=== PATIENT | male | born 1995 | race Caucasian/White ===

== ENCOUNTER 2017-05-15 07:48 | Emergency (ER) | payer OTHER ==
[~2017-05-15] VITALS: Ht 185.4 cm; Wt 83.6 kg
[2017-05-15 07:55] VITALS: BP 118/53
--- NOTE | 2017-05-15 09:31 | REP ---
RIGHT ANKLE SERIES: Four views of the right ankle are performed. There is no evidence of acute fracture or dislocation. There is moderate lateral soft tissue swelling. The ankle mortise is anatomic. IMPRESSION: No acute fracture or dislocation. Signed by Clayton Gooden MD 05/15/2017 10:05 A
--- NOTE | 2017-05-15 09:31 | REP ---
RIGHT FOOT SERIES, FOUR VIEWS: There is no evidence of an acute fracture, dislocation or intrinsic bone disease. IMPRESSION: No fracture or dislocation. Signed by Clayton Gooden MD 05/15/2017 10:05 A
[2017-05-15] MEDS ORDERED: NAPR500T PO (09:33)
== END 2017-05-15 09:52 | disposition home or self-care (01) ==
LOC: M ED 07:48
DX: S93.491A Sprain of other ligament of right ankle, initial encounter (principal); X50.1XXA Overexertion from prolonged static or awkward postures, initial encounter; Y92.9 Unspecified place or not applicable; Y93.9 Activity, unspecified; Y99.1 Military activity